=== PATIENT | male | born 1975 | race Caucasian/White ===

== ENCOUNTER 2016-10-16 20:05 | Emergency (ER) | payer SELFPAY ==
[~2016-10-16] VITALS: Ht 185.4 cm; Wt 97.5 kg
[2016-10-16] MEDS ORDERED: FLUORESCEIN (FLUOR-I-STRIPS) 1 MG STRP OU ONE (21:45)
[2016-10-16] MEDS ORDERED: BSS 15 ML IR ONE (21:45)
[2016-10-16] MEDS ORDERED: TETRACAINE 0.5% OPHTH SOLN 4 ML BTL (SINGLE DOSE ONLY) OP ONE (21:45)
--- NOTE | 2016-10-16 21:47 | ED EENT ---
History of Present Illness General Chief Complaint: Eye Problems Stated Complaint: L EYE IRRITATION/PAIN Nursing Triage Note: PT TO ED 8 W/ C/O POSS FB TO LT EYE ONSET 1030 THIS AM. THINKS MAY HAVE SAWDUST IN IT Source: patient Exam Limitations: no limitations History of Present Illness Time seen by provider: 21:46 Initial Comments 40-year-old male patient presents to the emergency department with complaints of foreign bodies the left eye. Patient reports onset of symptoms were at 1030 this a.m. Timing/Duration: abrupt, this morning Location: eye (L) Prearrival Treatment: flushing eyes Modifying Factors: Worse With Other (worse with rubbing the eye and sunlight) Allergies and Home Medications Allergies Coded Allergies: No Known Drug Allergies (Verified Allergy, Unknown, 02/17/08) Review of Systems Constitutional: no symptoms reported Eyes: See HPI, Blurred Vision, Foreign Body Sensation, Inflammation, Pain Ears: No Symptoms Reported Nose: no symptoms reported Mouth: no symptoms reported Throat: no symptoms reported Skin: no symptoms reported Neurological: No Symptoms Reported All Other Systems Reviewed Negative Unless Noted: Yes (Negative excepted noted.) Past [id number]-Zszddx Hx Patient Social History Alcohol Use: Denies Use Recreational Drug Use: No Smoking Status: Never a Smoker 2nd Hand Smoke Exposure: No Recent Foreign Travel: No Contact w/Someone Who Travel: No Recent Infectious Disease Expo: No Recent Hopitalizations: No Surgeries HX Surgeries: No Respiratory Hx Respiratory Disorders: No Cardiovascular Hx Cardiac Disorders: No Neurological Hx Neurological Disorders: Yes (2007) Neurological Disorders: Stroke Reproductive System Hx Reproductive Disorders: No Genitourinary Hx Genitourinary Disorders: No Gastrointestinal Hx Gastrointestinal Disorders: No Musculoskeletal Hx Musculoskeletal Disorders: No Endocrine Hx Endocrine Disorders: No HEENT HX ENT Disorders: No Cancer Hx Cancer: No Psychosocial Hx Psychiatric Problems: No Reviewed Nursing Assessment Reviewed/Agree w Nursing PMH: Yes Family Medical History Significant Family History: No Pertinent Family Hx Physical Exam Vital Signs Vital Sign - Last 12Hours 10/16/16 21:10 Temp 98.0 Pulse 57 Resp 18 B/P (MAP) 139/82 Pulse Ox 98 O2 Delivery Room Air General Appearance: WD/WN, no apparent distress Eyes: right eye normal inspection, left eye conjunctival inflammation, left eye corneal abrasion, bilateral eye EOMI, bilateral eye PERRL Neurologic/Psychiatric: alert, normal mood/affect, oriented x 3 Skin: normal color, warm/dry Eye : Location: left eye Anesthesia (gtts): Tetracaine (2 drops placed in the left eye (repeated x1)) Progress/Results/Core Measures Results/Orders My Orders Orders - LUIS MIGUEL TRUJILLO Fluorescein Strips ([id number]-[id number]) (10/16/16 21:45) Balanced Salt Irrigation Soln (Bss Irrig (10/16/16 21:45) Tetracaine 0.5% Ophth Sadaf Sdv (Tetracai (10/16/16 21:45) Rx-Gentamicin Ophth Soln (Rx-Gentamicin (10/16/16 23:00) Rx-Acetaminophen/Codeine (Rx-Tylenol #3) (10/16/16 23:00) Vital Signs/I&O Vital Sign - Last 12Hours 10/16/16 21:10 Temp 98.0 Pulse 57 Resp 18 B/P (MAP) 139/82 Pulse Ox 98 O2 Delivery Room Air Blood Pressure Mean: 101 Departure Impression Impression: Primary Impression: Corneal abrasion 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 Decision time for Depature: 23:04 Referrals: NO,LOCAL PHYSICIAN (PCP) Primary Care Physician ANGELA SUTTON (Family) Primary Care Physician SERGIO MARTINEZ OD, SHANE R OD Patient Instructions: Corneal Abrasion (DC), Corneal Ulcer (DC) Add. Discharge Instructions: All discharge instructions reviewed with patient and/or family. Voiced understanding. Medications as instructed. Ibuprofen 800 mg by mouth every 8 hours as needed for pain. Eye patch if needed. Follow-up with the data processing equipment repairer of your choice in the next 1-2 days for recheck, call first thing tomorrow morning for appointment time. Return to the emergency department for worsened pain, swelling, changes in vision, fever, or any other concerns. Scripts Hydrocodone/Acetaminophen (Hydrocodon -Acetaminophen 5-325) 1 Each Tablet 1 EACH PO Q4H Y for PAIN, #20 TAB 0 Refills Prov: LUIS MIGUEL TRUJILLO 10/16/16 LUIS MIGUEL TRUJILLO Oct 16, 2016 21:46
[2016-10-16] MEDS ORDERED: RX-ACETAMINOPHEN/CODEINE TAB PPK #4 PO SCH (23:00)
[2016-10-16] MEDS ORDERED: RX-GENTAMICIN SULFATE 0.3% OP 5 ML BTL OP STA (23:00)
[2016-10-16] MEDS ORDERED: HYDR-3812 PO (23:06)
[2016-10-16 23:16] VITALS: BP 134/71
--- OUTSIDE RECORDS SUMMARY | 2016-11-10 05:16 | XMS REPORT | Continuity of Care Document ---
Author Author [facility] Organization [facility] Address Unknown Phone Unavailable Care Team Providers Care Animal Nutritionist Name Role Phone PCP Unavailable Source Comments Some departments are not documenting in the electronic medical record. If you do not see the information that you expected, contact Release of Information in the Health Information Management department at [phone] for further assistance in locating additional records.[facility] Active Allergies and Adverse Reactions No Known Allergies Current Medications Not on file Active Problems Not on file Social History Tobacco Use Types Packs/Day Years Used Date Never Assessed Plan of Care Health Maintenance Due Date Last Done Comments Physical (Comprehensive) 10/18/1983 Exam Pertussis Vaccine 10/18/1987 Tetanus Vaccine 1993 Influenza Vaccine 03/21/2017 Results from Last 3 Months Not on file
== END 2016-10-16 23:16 | disposition home or self-care (01) ==
LOC: EDUNIT# 20:05 → ER 20:08
DX: S05.02XA Injury of conjunctiva and corneal abrasion without foreign body, left eye, initial encounter (principal); H16.002 Unspecified corneal ulcer, left eye; W22.8XXA Striking against or struck by other objects, initial encounter; Y99.8 Other external cause status
CPT/HCPCS: 99283